=== PATIENT | female | born 1975 | race Caucasian/White ===

== ENCOUNTER 2017-10-10 10:39 | Emergency (ER) | payer OTHER, SELFPAY ==
[2017-10-10] MEDS ORDERED: HYDROCODONE/APAP 5/325 MG TAB ONE (11:05)
--- NOTE | 2017-10-10 11:43 | RAD REPORT ---
EXAM DESCRIPTION: RAD - Ankle Right 3 View - 10/10/2017 11:34 am CLINICAL HISTORY: PAIN History of twisting injury. COMPARISON: No comparisons FINDINGS: No fracture or dislocation seen. Mild soft tissue swelling is evident. No aggressive bone lesion.
--- NOTE | 2017-10-10 11:51 | EDPHYS ---
Physician Documentation [facility] Name: Margie Paul Age: 41 yrs Sex: Female : 1975 Arrival Date: 10/10/2017 Time: 10:43 Bed 13 Private MD: Rafael Celestin ED Physician Doroteo Diallo HPI: 10/10 11:00 This 41 yrs old Female presents to ER via Ambulatory with complaints of Ankle pm1 Injury. 11:00 The patient presents with pain, swelling. The complaints affect the right ankle. Onset: pm1 The symptoms/episode began/occurred 2 week(s) ago. Context: The problem was sustained at home, resulted from turned her ankle, The mechanism of injury involved inversion of the affected ankle. The patient can partially bear weight on the affected extremity. the patient is able to ambulate. Associated signs and symptoms: Pertinent positives: swelling, of the lateral aspect of right ankle, Pertinent negatives: calf tenderness, fever, numbness, tingling. Modifying factors: The symptoms are alleviated by elevation of extremity, the symptoms are aggravated by weight bearing, movement. Severity of symptoms: in the emergency department the symptoms are actually worse. The patient has not experienced similar symptoms in the past. The patient has not recently seen a physician, the patient's primary care provider is Dr. Celestin. BELT TURNER: 12:18 LMP N/A - Irregular menses em Historical: - Allergies: 10:59 No Known Allergies; rk2 - Immunization history:: Last tetanus immunization: up to date Pneumococcal vaccine is up to date, Flu vaccine is not up to date. - Ebola Screening: : Patient negative for fever greater than or equal to 101.5 degrees Fahrenheit, and additional compatible Ebola Virus Disease symptoms. - Social history:: Smoking status: unknown. ROS: 11:00 Constitutional: Negative for fever, chills, and weight loss, Cardiovascular: Negative pm1 for chest pain, palpitations, and edema, Respiratory: Negative for shortness of breath, cough, wheezing, and pleuritic chest pain, Abdomen/GI: Negative for abdominal pain, nausea, vomiting, diarrhea, and constipation, Back: Negative for injury and pain. 11:00 Skin: Negative for injury, rash, and discoloration, Neuro: Negative for headache, weakness, numbness, tingling, and seizure. 11:00 MS/extremity: Positive for pain, swelling, of the right ankle. Exam: 11:00 Constitutional: This is a well developed, well nourished patient who is awake, alert, pm1 and in no acute distress. Head/Face: Normocephalic, atraumatic. Chest/axilla: Normal chest wall appearance and motion. Nontender with no deformity. No lesions are appreciated. Cardiovascular: Regular rate and rhythm with a normal S1 and S2. No gallops, murmurs, or rubs. Normal PMI, no JVD. No pulse deficits. Respiratory: Lungs have equal breath sounds bilaterally, clear to auscultation and percussion. No rales, rhonchi or wheezes noted. No increased work of breathing, no retractions or nasal flaring. Abdomen/GI: Soft, non-tender, with normal bowel sounds. No distension or tympany. No guarding or rebound. No evidence of tenderness throughout. Back: No spinal tenderness. No costovertebral tenderness. Full range of motion. Skin: Warm, dry with normal turgor. Normal color with no rashes, no lesions, and no evidence of cellulitis. 11:00 Musculoskeletal/extremity: Extremities: grossly normal except: noted in the lateral aspect of right ankle: swelling, tenderness, ROM: full active range of motion, in the right ankle and right foot, full passive range of motion, in the right ankle and right foot, Circulation is intact in all extremities. Sensation intact. Vital Signs: 10:59 BP 146 / 81; Pulse 85; Resp 18; Temp 97.9; Pulse Ox 97% ; Weight 90.72 kg; rk2 MDM: 10:47 Patient medically screened. pm1 11:50 Data reviewed: vital signs. Data interpreted: Pulse oximetry: on room air is 97 %. pm1 Interpretation: normal. Counseling: I had a detailed discussion with the patient and/or guardian regarding: the historical points, exam findings, and any diagnostic results supporting the discharge/admit diagnosis, radiology results, the need for outpatient follow up, to return to the emergency department if symptoms worsen or persist or if there are any questions or concerns that arise at home. 11:51 Special discussion: I have referred the patient to see his PCP for further evaluation pm1 of high blood pressure. 10/10 10:54 Order name: Ankle Right 3 View XRAY; Complete Time: 11:45 pm1 10/10 11:50 Order name: Aircast Ankle Splint; Complete Time: 12:16 pm1 10/10 11:50 Order name: Crutches; Complete Time: 12:16 pm1 Administered Medications: 11:09 Drug: [place] 5 mg-325 mg 1 tabs Route: PO; em 12:16 Follow up: Response: No adverse reaction Disposition: 10/11 07:56 Co-signature as Attending Physician, Doroteo Diallo MD. Disposition: 10/10/17 11:51 Discharged to Home. Impression: Sprain of unspecified ligament of right ankle. - Condition is Stable. - Discharge Instructions: Ankle Sprain, Cast or Splint Care, Crutch Use. - Prescriptions for Diclofenac Sodium 75 mg Oral Tablet Sustained Release - take 1 tablet by ORAL route 2 times per day; 30 tablet. - Medication Reconciliation Form, Thank You Letter form. - Follow up: Emergency Department; When: As needed; Reason: Worsening of condition. Follow up: Tristin Baker MD; When: 2 - 3 days; Reason: Recheck today's complaints, Continuance of care, Re-evaluation by your physician. - Problem is new. - Symptoms have improved. Signatures: Dispatcher [employer] EDMS Ivan Gimenez, INFORMATION CLERK BROKERAGE INFORMATION CLERK BROKERAGE em Juanito Arenas, FRUIT HARVESTER MACHINE OPERATOR FRUIT HARVESTER MACHINE OPERATOR pm1 Doroteo Diallo MD MD Vilma Vazquez RN RN rk2 Minna Umaña RN ss Corrections: (The following items were deleted from the chart) 10/10 12:19 11:51 10/10/2017 11:51 Discharged to Home. Impression: Sprain of unspecified ligament em of right ankle. Condition is Stable. Forms are Medication Reconciliation Form, Thank You Letter, Antibiotic Education, Prescription Opioid Use. Follow up: Emergency Department; When: As needed; Reason: Worsening of condition. Follow up: Dr. Tristin Baker; When: 2 - 3 days; Reason: Recheck today's complaints, Continuance of care, Re-evaluation by your physician. Problem is new. Symptoms have improved. pm1
--- NOTE | 2017-10-10 11:51 | ER ---
Nurse's Notes [facility] Name: Margie Paul Age: 41 yrs Sex: Female : 1975 Arrival Date: 10/10/2017 Time: 10:43 Bed 13 Private MD: Rafael Celestin Diagnosis: Sprain of unspecified ligament of right ankle Presentation: 10/10 10:53 Presenting complaint: Patient states: Pt. arrived by pv. c/o right foot/ankle pain. pt. rk2 states that she "rolled it" x 2+ weeks ago and not improving. Transition of care: patient was not received from another setting of care. Onset of symptoms Onset of symptoms was September 2017. Risk Assessment: Do you want to hurt yourself or someone else? Patient reports no desire to harm self or others. Initial Sepsis Screen: Does the patient meet any 2 criteria? No. Patient's initial sepsis screen is negative. Does the patient have a suspected source of infection? No. Patient's initial sepsis screen is negative. Care prior to arrival: None. 10:53 Method Of Arrival: Ambulatory rk2 10:53 Acuity: JEY 4 rk2 Triage Assessment: 10:59 General: Appears in no apparent distress. well developed, well nourished, Behavior is rk2 calm, cooperative. Pain: Complains of pain in right foot. Musculoskeletal: Swelling present in right foot. CONVEYOR FEEDER OFFBEARER: 12:18 LMP N/A - Irregular menses em Historical: - Allergies: 10:59 No Known Allergies; rk2 - Immunization history:: Last tetanus immunization: up to date Pneumococcal vaccine is up to date, Flu vaccine is not up to date. - Ebola Screening: : Patient negative for fever greater than or equal to 101.5 degrees Fahrenheit, and additional compatible Ebola Virus Disease symptoms. - Social history:: Smoking status: unknown. Screenin:20 Abuse screen: Denies threats or abuse. Nutritional screening: No deficits noted. em Tuberculosis screening: No symptoms or risk factors identified. Fall Risk None identified. Assessment: 11:00 General: Appears in no apparent distress. comfortable, Behavior is calm, cooperative, em Reports "rolling ankle about 3 weeks ago, has got worse". Pain: Complains of pain in right foot Pain currently is 8 out of 10 on a pain scale. Neuro: Level of Consciousness is awake, alert, obeys commands, Oriented to person, place, time, situation. Cardiovascular: Capillary refill < 3 seconds Patient's skin is warm and dry. Respiratory: Airway is patent Respiratory effort is even, unlabored, Respiratory pattern is regular, symmetrical. GI: Abdomen is flat. : No signs and/or symptoms were reported regarding the genitourinary system. EENT: No signs and/or symptoms were reported regarding the EENT system. Derm: Skin is intact, Skin is pink, warm \\T\\ dry. Musculoskeletal: Range of motion: limited in right ankle Swelling present in right foot. 11:05 General: The previous assessment is accurate, call light remains within reach. . ss 12:17 Reassessment: Patient appears in no apparent distress at this time. Patient and/or em family updated on plan of care and expected duration. Pain level reassessed. Patient is alert, oriented x 3, equal unlabored respirations, skin warm/dry/pink. states, "medication didn't do anything." AURELIO Solomon notified, no new orders received. Vital Signs: 10:59 BP 146 / 81; Pulse 85; Resp 18; Temp 97.9; Pulse Ox 97% ; Weight 90.72 kg; rk2 ED Course: 10:43 Patient arrived in ED. sb2 10:43 Rafael Celestin MD is Private Physician. sb2 10:47 Juanito Arenas NP is PHCP. pm1 10:47 Doroteo Diallo MD is Attending Physician. pm1 10:57 Ivan Gimenez LVN is Primary Nurse. em 10:58 Triage completed. rk2 11:13 Arm band placed on. em 11:21 No provider procedures requiring assistance completed. Patient did not have IV access em during this emergency room visit. 11:22 Patient has correct armband on for positive identification. Bed in low position. Call em light in reach. Adult w/ patient. 11:33 X-ray completed. Portable x-ray completed in exam room. Patient tolerated procedure la2 well. 11:34 Ankle Right 3 View XRAY In Process Unspecified. EDMS 11:51 Tristin Baker MD is Referral Physician. pm1 12:09 Crutch training done. mh5 Administered Medications: 11:09 Drug: [place] 5 mg-325 mg 1 tabs Route: PO; em 12:16 Follow up: Response: No adverse reaction ss Outcome: 11:51 Discharge ordered by . pm1 12:19 Discharged to home with crutches. em 12:19 Condition: good 12:19 Discharge instructions given to patient, family, Instructed on discharge instructions, follow up and referral plans. medication usage, crutch walking, Demonstrated understanding of instructions, follow-up care, medications, crutch walking, Prescriptions given X 1. 12:19 Patient left the ED. em Signatures: Dispatcher [employer] EDIvan Tolbert, DRIVER GUARD DRIVER GUARD em Minna Umaña, KATY RN ss Juanito Arenas NP PATCH WORKER pm1 Jennie Maher Leslie la2 Kidder, Rhonda, RN RN rk2 Stacy Kruse2
[2017-10-10 12:35] VITALS: BP 146/81; TEMP 97.9; O2SAT 97
== END 2017-10-10 12:19 | disposition home or self-care (01) ==
LOC: ER 10:39
DX: S93.401A Sprain of unspecified ligament of right ankle, initial encounter (principal); X50.1XXA Overexertion from prolonged static or awkward postures, initial encounter; Y93.89 Activity, other specified; Y92.009 Unspecified place in unspecified non-institutional (private) residence as the place of occurrence of the external cause
CPT/HCPCS: 99284

== ENCOUNTER 2019-01-05 11:37 | Emergency (ER) | payer SELFPAY ==
--- NOTE | 2019-01-05 12:00 | ER ---
Nurse's Notes [facility] Name: Margie Paul Age: 43 yrs Sex: Female : 1975 Arrival Date: 01/05/2019 Time: 11:37 Bed Waiting Private MD: Diagnosis: Assessment: 01/05 11:48 Reassessment: pt not in lobby when called. iw 11:59 Reassessment: pt not in lobby, registration reports seeing pt leave. ED Course: 11:37 Patient arrived in ED. as Administered Medications: No medications were administered Outcome: 11:59 Eloped from waiting room, before seeing physician Time discovered patient gone: iw January 05, 2019 at 11:59 11:59 Patient left the ED. Signatures: Rimma Maher Irene, RN RN iw
== END 2019-01-05 11:59 | disposition left against medical advice (07) ==
LOC: ER 11:37
DX: Z02.9 Encounter for administrative examinations, unspecified (principal)

== ENCOUNTER 2020-06-06 02:05 | Emergency (ER) | payer SELFPAY ==
--- OUTSIDE RECORDS SUMMARY | 2020-06-06 02:08 | XMS REPORT ---
:1975 Author Organization [facility] Address [address], [address] [place] [address] Care Team Providers Name Role Phone Cifuentes Unavailable [phone] PROBLEMS Type Condition ICD9-CM [id number] Onset Condition SNOMED Code Notes Code Code Dates Status Problem Insomnia, G47.00 Active 174091536 unspecified type Problem Hypothyroidism, E03.9 Active 93926882 unspecified type Problem Depression with F41.8 Active 071382848 anxiety Problem Generalized F41.1 Active 73623393 anxiety disorder Problem Panic disorder F41.0 Active 119106122 [episodic paroxysmal anxiety] Problem Mixed E78.2 Active 557821564 hyperlipidemia Problem Primary M16.11 Active 744243156905740 osteoarthritis of right hip Problem Other obesity due E66.09 Active 694499250 to excess calories Problem Body mass index Z68.33 Active 628916788 [BMI] 33.0-33.9, adult ALLERGIES No Known Allergies ENCOUNTERS from 1975 to 2020-03-15 Encounter Location Date Provider Diagnosis [facility] [address], [place] [address] IMMUNIZATIONS Vaccine Route Administration Date Status Fluzone IM Intramuscular July 05, 2019 Administered SOCIAL HISTORY Tobacco Use: Social History Observation Description Date Details (start date - stop date) Current Smoker Sex Assigned At : Social History Observation Description Sex Assigned At Unknown PHQ9 Question Answer Notes Little interest or pleasure in doing things Not at all Feeling down, depressed, or hopeless Not at all Trouble falling or staying asleep or sleeping too much Sever al days Feeling tired or having little energy Not at all Poor appetite or overeating Several days Feeling bad about yourself, or that you are a failure, or Se veral days have let yourself or your family down Trouble concentrating on things, such as reading the Not at all newspaper or watching television Moving or speaking so slowly that other people could have No t at all noticed; or the opposite, being so fidgety or restless that you have been moving around a lot more than usual Total Score 3 Interpretation Minimal Depression Thoughts that you would be better off or of hurting Not at all yourself in some way Alcohol Screen Question Answer Notes Did you have a drink containing alcohol in the past Yes year? Points 1 Interpretation Negative How often did you have a drink containing alcohol in Monthly or less (1 point) the past year? Tobacco Use/Smoking Question Answer Notes Are you a current smoker How many cigarettes a day do you smoke? 11-20 How often do you smoke cigarettes? every day REASON FOR REFERRAL No Information VITAL SIGNS No information MEDICATIONS Medication SIG (Take, Route, Notes Start Date End Date Status Frequency, Duration) Zolpidem Tartrate 10 MG 1 tablet at bedtime (ok Active to fill on or after 02/07/20) Orally Once a day PRN Insomnia for 30 days Clonazepam 0.5 MG 1 tablet on the tongue Feb, Active and allow to dissolve at bedtime Orally Once a day PRN SEVERE ANXIETY Escitalopram Oxalate 20 MG 1 tablet Orally Once a Active day for 30 day(s) Acetaminophen-Codeine 1 tablet as needed Jul, Active 300-30 MG Orally every 12 hrs PRN Pain Levothyroxine Sodium 150 1 tablet in the morning Active MCG on an empty stomach Orally Once a day for 30 days Phentermine HCl 37.5 MG 1 capsule Orally Once a Active day for 30 days Euthyrox 175 MCG TAKE 1 TABLET BY MOUTH Active ONCE DAILY IN THE MORNING ON AN EMPTY STOMACH FOR 30 DAYS for 30 PROCEDURES No Information RESULTS No Results REASON FOR VISIT clonazepam clarification MEDICAL (GENERAL) HISTORY Type Description Date Medical History Hypothyroidism, unspecified type Medical History Depression with anxiety Medical History Insomnia, unspecified type Medical History Mixed hyperlipidemia Medical History Primary osteoarthritis of right hip Surgical History Tubal ligation 2011 Surgical History Gallbladder-1 huge stone 2018 Goals Section No Information Health Concerns No Information MEDICAL EQUIPMENT No Information MENTAL STATUS No Information FUNCTIONAL STATUS No Information ASSESSMENTS No Information PLAN OF TREATMENT Medication Medication Name Sig Start Date Stop Date Zolpidem Tartrate 10 MG 1 tablet at bedtime (ok to fill on or after 02/07/20) Orally Once a day PRN Insomnia for 30 days Levothyroxine Sodium 150 MCG 1 tablet in the morning on an empty stomach Orally Once a day for 30 days Escitalopram Oxalate 20 MG 1 tablet Orally Once a day for 30 day(s) Phentermine HCl 37.5 MG 1 capsule Orally Once a day for 30 days Clonazepam 0.5 MG 1 tablet on the tongue and allow Feb, to dissolve at bedtime Orally Once a day PRN SEVERE ANXIETY Insurance Providers Payer Name Payer Payer Insured Patient Coverage Coverage End Address Phone Name Relationship to Start Date Dennis e Insured [facility] [phone] [place] self [address] [facility] [id number] [facility] [id number]
--- OUTSIDE RECORDS SUMMARY | 2020-06-06 02:08 | XMS REPORT ---
:1975 Author Organization [facility] Address [address], [address] [place] [address] Care Team Providers Name Role Phone Cifuentes Unavailable [phone] PROBLEMS Type Condition ICD9-CM [id number] Onset Condition SNOMED Code Notes Code Code Dates Status Problem Insomnia, G47.00 Active 537348559 unspecified type Problem Hypothyroidism, E03.9 Active 03157114 unspecified type Problem Depression with F41.8 Active 862742737 anxiety Problem Generalized F41.1 Active 14104929 anxiety disorder Problem Panic disorder F41.0 Active 975559639 [episodic paroxysmal anxiety] Problem Mixed E78.2 Active 436741070 hyperlipidemia Problem Primary M16.11 Active 949736117128243 osteoarthritis of right hip Problem Other obesity due E66.09 Active 571825537 to excess calories Problem Body mass index Z68.33 Active 715297312 [BMI] 33.0-33.9, adult ALLERGIES No Known Allergies ENCOUNTERS from 1975 to 2020-03-20 Encounter Location Date Provider Diagnosis [facility] [address] Will [facility] Feb, [facility] [place] ic disorder [facility] [address] [place], [[place] [address] anxiety] F41.0 IMMUNIZATIONS Vaccine Route Administration Date Status Fluzone [...] Tartrate 10 MG 1 tablet at bedtime Active (ok to fill on or after 02/07/20) Orally Once a day PRN Insomnia for 30 days Cyclobenzaprine HCl 5 MG 1 tablet at bedtime as Feb, 20 Active needed Orally Once a day PRN SPASM Escitalopram Oxalate 20 MG 1 tablet Orally Once a Active day for 30 day(s) Clonazepam 0.5 MG 1 tablet on the tongue Feb, Active and allow to dissolve at bedtime Orally Once a day PRN SEVERE ANXIETY Acetaminophen-Codeine 300-30 1 tablet as needed Jul, 20 Active MG Orally every 12 hrs PRN Pain Levothyroxine Sodium 150 MCG 1 tablet in the Active morning on an empty stomach Orally Once a day for 30 days Phentermine HCl 37.5 MG 1 capsule Orally Once Active a day for 30 days Euthyrox 175 MCG TAKE 1 TABLET BY MOUTH Active ONCE DAILY IN THE MORNING ON AN EMPTY STOMACH FOR 30 DAYS for 30 PROCEDURES No Information RESULTS No Results REASON FOR VISIT Clonazepam to diff pharm MEDICAL (GENERAL) HISTORY Type Description Date Medical History Hypothyroidism, unspecified type Medical History Depression with anxiety Medical History Insomnia, unspecified type Medical History Mixed hyperlipidemia Medical History Primary osteoarthritis of right hip Surgical History Tubal ligation 2011 Surgical History Gallbladder-1 huge stone 2019 Goals Section No Information Health Concerns No Information MEDICAL EQUIPMENT No Information MENTAL STATUS No Information FUNCTIONAL STATUS No Information ASSESSMENTS Encounter Date Diagnosis Assessment Notes Treatment Notes Treatm ent Clinical Notes Feb, Panic disorder [episodic paroxysmal anxiety] (ICD-10 - F41.0) PLAN OF TREATMENT Medication Medication Name Sig [...] Orally Once a day PRN SEVERE ANXIETY Cyclobenzaprine HCl 5 MG 1 tablet at bedtime as needed Feb, 020 Orally Once a day PRN SPASM Insurance Providers Payer Name Payer Payer Insured Patient Coverage Coverage End Address Phone Name Relationship to Start Date Dennis e Insured [facility] [phone] [place] [address] [employer] [id number] [facility] [id number]
--- OUTSIDE RECORDS SUMMARY | 2020-06-06 02:08 | XMS REPORT | Continuity of Care Document ---
:1975 Author Organization [facility] t Address [address] [place] [address] Care Team Providers Name Role Phone Millicent JOSUE, L Attending Clinician Problems This patient has no known problems. Allergies, Adverse Reactions, Alerts This patient has no known allergies or adverse reactions. Medications Ordered Filled Start Stop Current Ordering Indication Dosage Frequency Signature Comments Components Source Medication Medication Date Date Medication? Clinician (SIG) Name Name Escitalopra Escitalopra Yes Amandeep Take 1/[address] [facility] Oxalate m Oxalate 8-13 C[facility]uentes tab QD x 1 [facility] Levothyroxi Levothyroxi Yes Amandeep [address] [facility] ne Sodium ne Sodium Cifuentes in the Elena kes - morning on [facility] an empty l stomach [facility]pat[facility] ent Clinics Zolpidem Zolpidem Yes Amandeep [address] Tartrate Tartrate [facility]uent[facility] at bedtime [facility] Procedures This patient has no known procedures. Encounters Start End Encounter Admission Attending Care Care Encounter Source Date/Time Date/Time Type Type Clinicians Facility Department ID 2020-05-28 2020-05-28 Out[facility] [id number] [facility] 2020-05-14 2020-05-14 [facility] [id number] [facility] 2020-05-09 2020-05-09 [facility] [id number] [facility] 2020-05-01 2020-05-01 [facility] [id number] [facility] 2020-03-20 2020-03-20 [facility] [id number] [facility] 2020-03-19 2020-03-19 Out[facility] [id number] [facility] 2020-03-14 2020-03-14 [facility] [id number] [facility] 2020-03-14 2020-03-14 [facility] [id number] [facility] 2020-03-12 2020-03-12 [facility] [id number] [facility] 2020-02-22 2020-02-22 [facility] [id number] [facility] 2020-02-08 2020-02-08 [facility] [id number] [facility] 2020-02-01 2020-02-01 [facility] [id number] [facility] 2020-01-26 2020-01-26 [facility] [id number] [facility] 2020-01-25 2020-01-25 [facility] [id number] [facility] 2020-01-08 2020-01-08 [facility] [id number] [facility] 13[facility]30:00 13:30:00 [place] [employer] [address] [place] s - Drive [facility] l Medicine Outpati ent Clinics 2019-12-28 2019-12-28 [facility] [id number] [address] 11:40:00 11:40:00 t [facility] [employer] - Road [facility] Medicine Outpati ent Clinics 2019-12-27 2019-12-27 [facility] [id number] [address] 10:37:00 10:37:00 t [place] [employer] - Drive [facility] Medicine Outpati ent Clinics 2019-12-27 2019-12-27 [facility] [id number] [facility] 10:30:00 10:30:00 t [place] [employer] - Drive [facility] l Medicine Outpati ent Clinics 2019-12-07 2019-12-07 [facility] [id number] 15:15:00 15:15:00 [place] [employer] - Drive [facility] Medicine l Medicine Outpati ent Clinics 2019-12-04 2019-12-04 Telephone [facility] [id number] 00:00:00 00:00:00 [facility] [id number] Surgical [id number] Specialti [id number] [address] [place] 2019-11-30 2019-11-30 [facility] [id number] 08:24:40 09:18:06 [facility] [id number] Surgical [id number] Specialti [id number] es [address] [place] 2019-11-06 2019-11-06 [facility] [id number] 13:30:00 13:30:00 [employer] [facility] 2019-08-28 2019-08-28 [facility] [id number] 13:15:00 13:15:00 [employer] [facility] ent Clinics Results This patient has no known results.
--- OUTSIDE RECORDS SUMMARY | 2020-06-06 02:08 | XMS REPORT ---
:1975 Author Organization [facility] Address [address], [address] [place] [address] Care Team Providers Name Role Phone Cifuentes Unavailable [phone] PROBLEMS Type Condition ICD9-CM ESX33-OP Onset Condition SNOMED Code Notes Code Code Dates Status Problem Depression with F41.8 Active 570590642 anxiety Problem Body mass index Z68.33 Active 386575567 [BMI] 33.0-33.9, adult Problem Other obesity due E66.09 Active 096052622 to excess calories Problem Insomnia, G47.00 Active 407460334 unspecified type Problem Hypothyroidism, E03.9 Active 05975819 unspecified type Problem Primary M16.11 Active [id number] osteoarthritis of right hip Problem Mixed E78.2 Active 713865394 hyperlipidemia ALLERGIES No Known Allergies ENCOUNTERS from 1975 to 2020-03-13 Encounter Location Date Provider Diagnosis [facility] [address] Feb, 2020 [place] [address] IMMUNIZATIONS Vaccine Route Administration Date Status Fluzone [...] many cigarettes a day do you smoke? -20 How often do you smoke cigarettes? every day REASON FOR REFERRAL No Information VITAL SIGNS No information MEDICATIONS Medication SIG (Take, Route, Notes Start Date End Date Status Frequency, Duration) Zolpidem Tartrate 10 MG 1 tablet at bedtime (ok Active to fill on or after 02/07/20) Orally Once a day PRN Insomnia for 30 days Acetaminophen-Codeine 1 tablet as needed Jul, Active 300-30 MG Orally every 12 hrs PRN Pain Euthyrox 175 MCG TAKE 1 TABLET BY MOUTH Active ONCE DAILY IN THE MORNING ON AN EMPTY STOMACH FOR 30 DAYS for 30 Escitalopram Oxalate 10 MG 1 tablet Orally Once a Active day for 30 day(s) Phentermine HCl 37.5 MG 1 capsule Orally Once a Active day for 30 days Levothyroxine Sodium 150 1 tablet in the morning Active MCG on an empty stomach Orally Once a day for 30 days PROCEDURES No Information RESULTS No Results REASON FOR VISIT Medication refill MEDICAL (GENERAL) HISTORY Type Description Date Medical [...] a day PRN Insomnia for 30 days Phentermine HCl 37.5 MG 1 capsule Orally Once a day for 30 days Levothyroxine Sodium 150 MCG 1 tablet in the morning on an empty stomach Orally Once a day for 30 days Escitalopram Oxalate 10 MG 1 tablet Orally Once a day for 30 day(s) Next Appt Details Provider Name:Amandeep Cifuentes, 2020-03-14 0 4:30:00 PM, [address], [address], [place], [address], Insurance Providers Payer Name Payer Payer Insured Patient Coverage Coverage End Address Phone Name Relationship to Start Date Dennis e Insured [facility] [phone] [place] self 2019 [facility] [id number] [facility] [id number]
--- OUTSIDE RECORDS SUMMARY | 2020-06-06 02:08 | XMS REPORT ---
:1975 Author Organization [facility] Address [address] Roth, [address]. [address] [place] [address] Care Team Providers Name Role Phone Cifuentes Unavailable [phone] PROBLEMS Type Condition ICD9-CM [id number] Onset Condition SNOMED Code Notes Code Code Dates Status Problem Insomnia, G47.00 Active 628412304 unspecified type Problem Hypothyroidism, E03.9 Active 09444959 unspecified type Problem Depression with F41.8 Active 139019193 anxiety Problem Generalized F41.1 Active 02407836 anxiety disorder Problem Panic disorder F41.0 Active 982797906 [episodic paroxysmal anxiety] Problem Mixed E78.2 Active 664112126 hyperlipidemia Problem Primary M16.11 Active 849799057007985 osteoarthritis of right hip Problem Other obesity due E66.09 Active 087617655 to excess calories Problem Body mass index Z68.33 Active 539994506 [BMI] 33.0-33.9, adult ALLERGIES No Known Allergies ENCOUNTERS from 1975 to 2020-05-09 Encounter Location Date Provider Diagnosis [facility] [address] Will ETHAN Apr, Amandeep Esau Zhao n with anxiety [address] [facility] [address] [place], F41.8 ; [place] [address] anxiety disord er F41.1 ; Panic disorde r [episodic parox ysmal anxiety] F41.0 ; Body mass index [BMI ] 33.0-33.9, adul t Z68.33 ; Hypothyroidis m, unspecified typ e E03.9 ; Insomnia, uns pecified type G47.00 ; Bereavement due to life event Z63.4 ; M ixed hyperlipidemia E78.2 ; Primary osteoar thritis of right hip M1 6.11 ; Other obesity d ue to excess calories E66.09 and Encounter f or dietary corrections counselor ing and surveillance Z7 1.3 IMMUNIZATIONS Vaccine Route Administration Date Status Fluzone [...] REASON FOR REFERRAL No Information VITAL SIGNS Height 67 in Apr, Weight 215 lbs Apr, Temperature 98 degrees Fahrenheit Apr, BMI 33.67 kg/m2 Apr, Blood pressure systolic 124 mm Hg Apr, Blood pressure diastolic 88 mm Hg Apr, MEDICATIONS Medication SIG (Take, Route, Notes Start Date End Date Status Frequency, Duration) Euthyrox 150 MCG TAKE 1 TABLET BY MOUTH Active ONCE DAILY IN THE MORNING ON AN EMPTY STOMACH FOR 30 DAYS for 30 Euthyrox 175 MCG TAKE 1 TABLET BY MOUTH Active ONCE DAILY IN THE MORNING ON AN EMPTY STOMACH FOR 30 DAYS for 30 Phentermine HCl 37.5 MG 1 capsule Orally Once Active a day for 30 days Levothyroxine Sodium 150 MCG 1 tablet in the Active morning on an empty stomach Orally Once a day for 30 days Acetaminophen-Codeine 300-30 1 tablet as needed Jul, 20 Active MG Orally every 12 hrs PRN Pain Clonazepam 0.5 MG 1 tablet on the tongue Active and allow to dissolve at bedtime Orally Once a day PRN SEVERE ANXIETY Cyclobenzaprine HCl 5 MG 1 tablet at bedtime as Feb, 20 Active needed Orally Once a day PRN SPASM Zolpidem Tartrate 10 MG 1 tablet at bedtime as Active needed Orally Once a day PRN Insomnia for 30 days Escitalopram Oxalate 20 MG 1 tablet Orally Once a Active day for 30 day(s) PROCEDURES No Information RESULTS No Results REASON FOR VISIT med f/u MEDICAL (GENERAL) HISTORY Type Description Date Medical [...] Notes Treatment Notes Treatm ent Clinical Notes Apr, Depression with Actively listented. anxiety (ICD-10 - Support given. F41.8) Discussed treatment options. Medication + Counseling/Therapy. Infomation provided for psychologist for therapy options, encouraged to call to make an appt. IINCREASED Lexapro 20 mg. STOPPED BUSPAR 10 mg BID. Side effect discussed. Depression Education: Depression is a brain disease that makes you sad, but it is different than normal sadness. Depressed people feel down most of the time for at least 2 weeks. They also have at least one of these 2 symptoms: 1. They no longer enjoy or care about doing the things they used to like to do. 2. They feel sad, down, hopeless, or cranky most of the day, almost every day. It can also make you: lose or gain weight; sleep too much or too little; fell tired or like you have no energy; feel guilty or like you are worth nothing; forget things or feel confused; and think about or suicide. Medication and/or seeing a counselor (such as a psychiatrist, psychologist, nurse or director social welfare) may be necessary to treat depression. Both treatments take time to work. If you ever feel like you might hurt yourself or some else, then call your doctor or call 911 or go to the ER. Apr, Generalized anxiety disorder (ICD-10 - F41.1) Apr, Panic disorder Discussed [episodic paroxysmal differential anxiety] (ICD-10 - diagnosis F41.0) extensively patient. Education given. Minimal relief with conservative treatment at this time. Impacting and affecting ADLs. At this time, will prescribe a limited course of Clonazepam 0.50 mg once daily for severe anxiety. Dispensed 15 tablets. Has failed multiple SSRIs and other medications. Instructed to use half tablet as needed. Discussed extensively with patient including but not limited to risk, complications, benefits, alternative treatment options, side effect panel of benzodiazepine. In addition, discussed long-term impact of benzodiazepine usage including building tolerance, dependence and leading to addiction. Patient is agreeable of being referred to psychiatry if patient is in need of increase in frequency and quantity of benzodiazepine. Patient vocalized understanding. Apr, Body mass index [BMI] 33.0-33.9, adult (ICD-10 - Z68.33) Apr, Hypothyroidism, DECREASED unspecified type levothyroxine to 150 (ICD-10 - E03.9) mcg. Goal TSH 1-3. Sativa plan discussed. Repeat in 2 months. Education given., Hypothyroidism Education: This a condition in which the thyroid gland does not produce enough thyroid hormone for the body. The hormones are important in regulating the body''s use of storing and controlling energy. Symptoms are widely varied and often mimick the body''s normal changes of life. Symptoms may include: fatigue, shortness of breath with exertion, dry skin, hair loss, constipation, depressed feeling, weight gain and temperature intolerance. A blood test is used to determine the thyroid levels. Treatment involves the use of medication in order to balance the TSH and T4 hormone levels. Treatment is indefinite and often lifelong. Your hormone levels will need to be checked periodically to insure that the levels are balanced. Compliance with medication is vital. Overtreated hormone levels can lead to complications. Contact your doctor if you have any abnormal symptoms. Apr, Insomnia, Discussed good sleep unspecified type hygiene. No relief (ICD-10 - G47.00) with amitriptyline, lunesta and trazodone. No change with trazodone or Belsomra. Increased Ambien 10 mg Side effect panel discussed.. Apr, Bereavement due to . Actively life event (ICD-10 - listened. Support Z63.4) given Apr, Mixed hyperlipidemia . Diet controlled. (ICD-10 - E78.2) Education given. , Hyperlipidemia Education: Hyperlipidemia refers to increased levels of lipids(fats) in the blood, including cholesterol and triglycerides. This can significantly increase your risk of developing coronary artery disease and peripheral artery disease. This can cause chest pain, heart attack, stroke, and fatigue. Treatment is recommended to decrease your risk. Treatment includes: lifestyle modification, low salt/low fat diet, exercise, tobacco cessation, low alcohol intake and sometimes medication. Blood tests (TC,TG, HDL, LDL) are utilized to determine treatment regimens. TC(Total cholesterol) should be below 200. TG(Total Triglycerides) should be below 150. HDL(Good cholesterol) should be above 40. LDL(Bad Cholesterol) should be below 130(if you have one risk factor) or less than 100( if you have more than one risk factor or have DM/CAD/PVD). Compliance with medication and treatment is vital. If you have questions, talk to your doctor. Apr, Primary Discussed osteoarthritis of differential right hip (ICD-10 - diagnosis with M16.11) patient. Education given. Recent CT scan showed arthritis per patient. Referral to orthopedic for further evaluation and management. Apr, Other obesity due to Discussed excess calories extensively with (ICD-10 - E66.09) patient. Discussed surgical versus nonsurgical weight loss options. Discussed medication options as well too. Educated on the importance of weight loss. Patient will opt for Adipex. Increase 37.5 mg. Side effect panel discussed extensively. Expected to lose more than 5% body weight in 12 weeks, if unable will stop medication. If symptomatic will obtain EKG. No personal or family history of cardiac. Counseling given. Spent more than 15 min with patient discussing and planning diet and exercise plan. Apr, Encounter for Actively listened. dietary counseling Support given. and surveillance Counseling given. (ICD-10 - Z71.3) Education given. Utilized the 5-A''s approach to increase patient motivation and behavioral change. ASK: Patient expressed desire/readiness to change and permission was obtained to discuss. ASSESS: BMI class discussed. In addition, patient''s barrier to weight loss and identified drivers and complications. ADVISE: Discussed benefits of modest weight loss and long-term strategy as well. Educated on risks and complications of obesity on health. Treatment options were discussed including but not limited to non-surgical (medications, gym, diet/exercise) and surgical options. AGREE: Realistic weight-loss goal discussed. Behavioral goals done. Patient agreed with treatment plan. ASSIST: Provided education and resources. Plan made to address drivers and barriers. Close follow-up arranged. START: Walking daily, reducing soda and increased hydration with water of at least 64 ounces. Weight has been followed. At least 15 minutes were spent counseling. Apr, Other -- Medication reviewed and updated. -- Dietary and Lifestyle modifications addressed regarding diet, exercise and weight managemen t. -- Treatment options, risks and benefits, side effects reviewed in detail. -- Advised on signs/symptoms to monitor and when to call clinic and/or visit the nearest ER. Patient verbalized understanding and agreeable with plan. PLAN OF TREATMENT Medication Medication Name Sig Start Date Stop Date Zolpidem Tartrate 10 MG 1 tablet at bedtime as needed Orally Once a day PRN Insomnia for 30 days Clonazepam 0.5 MG 1 tablet on the tongue and allow to dissolve at bedtime Orally Once a day PRN SEVERE ANXIETY Phentermine HCl 37.5 MG 1 capsule Orally Once a day for 30 days Levothyroxine Sodium 150 MCG 1 tablet in the morning on an empty stomach Orally Once a day for 30 days Escitalopram Oxalate 20 MG 1 tablet Orally Once a day for 30 day(s) Treatment Notes Assessment Notes Clinical Notes Depression with anxiety Actively listented. Support given. Discussed treatment options. Medication + Counseling/Therapy. Infomation provided for psychologist for therapy options, encouraged to call to make an appt. IINCREASED Lexapro 20 mg. STOPPED BUSPAR 10 mg BID. Side effect discussed. Depression Education: Depression is a brain disease that makes you sad, but it is different than normal sadness. Depressed people feel down most of the time for at least 2 weeks. They also have at least one of these 2 symptoms: 1. They no longer enjoy or care about doing the things they used to like to do. 2. They feel sad, down, hopeless, or cranky most of the day, almost every day. It can also make you: lose or gain weight; sleep too much or too little; fell tired or like you have no energy; feel guilty or like you are worth nothing; forget things or feel confused; and think about or suicide. Medication and/or seeing a counselor (such as a psychiatrist, psychologist, nurse or director social welfare) may be necessary to treat depression. Both treatments take time to work. If you ever feel like you might hurt yourself or some else, then call your doctor or call 911 or go to the ER. Panic disorder [episodic paroxysmal Discussed differential d iagnosis anxiety] extensively patient. Education given. Minimal relief with conservative treatment at this time. Impacting and affecting ADLs. At this time, will prescribe a limited course of Clonazepam 0.50 mg once daily for severe anxiety. Dispensed 15 tablets. Has failed multiple SSRIs and other medications. Instructed to use half tablet as needed. Discussed extensively with patient including but not limited to risk, complications, benefits, alternative treatment options, side effect panel of benzodiazepine. In addition, discussed long-term impact of benzodiazepine usage including building tolerance, dependence and leading to addiction. Patient is agreeable of being referred to psychiatry if patient is in need of increase in frequency and quantity of benzodiazepine. Patient vocalized understanding. Hypothyroidism, unspecified type DECREASED levothyroxine to 150 mcg. Goal TSH 1-3. Sativa plan discussed. Repeat in 2 months. Education given., Hypothyroidism Education: This a condition in which the thyroid gland does not produce enough thyroid hormone for the body. The hormones are important in regulating the body''s use of storing and controlling energy. Symptoms are widely varied and often mimick the body''s normal changes of life. Symptoms may include: fatigue, shortness of breath with exertion, dry skin, hair loss, constipation, depressed feeling, weight gain and temperature intolerance. A blood test is used to determine the thyroid levels. Treatment involves the use of medication in order to balance the TSH and T4 hormone levels. Treatment is indefinite and often lifelong. Your hormone levels will need to be checked periodically to insure that the levels are balanced. Compliance with medication is vital. Overtreated hormone levels can lead to complications. Contact your doctor if you have any abnormal symptoms. Insomnia, unspecified type Discussed good sleep hygiene. No relief with amitriptyline, lunesta and trazodone. No change with trazodone or Belsomra. Increased Ambien 10 mg Side effect panel discussed.. Bereavement due to life event . Actively listened. Support given Mixed hyperlipidemia . Diet controlled. Education given. , Hyperlipidemia Education: Hyperlipidemia refers to increased levels of lipids(fats) in the blood, including cholesterol and triglycerides. This can significantly increase your risk of developing coronary artery disease and peripheral artery disease. This can cause chest pain, heart attack, stroke, and fatigue. Treatment is recommended to decrease your risk. Treatment includes: lifestyle modification, low salt/low fat diet, exercise, tobacco cessation, low alcohol intake and sometimes medication. Blood tests (TC,TG, HDL, LDL) are utilized to determine treatment regimens. TC(Total cholesterol) should be below 200. TG(Total Triglycerides) should be below 150. HDL(Good cholesterol) should be above 40. LDL(Bad Cholesterol) should be below 130(if you have one risk factor) or less than 100( if you have more than one risk factor or have DM/CAD/PVD). Compliance with medication and treatment is vital. If you have questions, talk to your doctor. Primary osteoarthritis of right hip Discussed differential d iagnosis with patient. Education given. Recent CT scan showed arthritis per patient. Referral to orthopedic for further evaluation and management. Other obesity due to excess Discussed extensively with toribio vernon. calories Discussed surgical versus nonsurgical weight loss options. Discussed medication options as well too. Educated on the importance of weight loss. Patient will opt for Adipex. Increase 37.5 mg. Side effect panel discussed extensively. Expected to lose more than 5% body weight in 12 weeks, if unable will stop medication. If symptomatic will obtain EKG. No personal or family history of cardiac. Counseling given. Spent more than 15 min with patient discussing and planning diet and exercise plan. Encounter for dietary counseling Actively listened. Support given. and surveillance Counseling given. Education given. Utilized the 5-A''s approach to increase patient motivation and behavioral change. ASK: Patient expressed desire/readiness to change and permission was obtained to discuss. ASSESS: BMI class discussed. In addition, patient''s barrier to weight loss and identified drivers and complications. ADVISE: Discussed benefits of modest weight loss and long-term strategy as well. Educated on risks and complications of obesity on health. Treatment options were discussed including but not limited to non-surgical (medications, gym, diet/exercise) and surgical options. AGREE: Realistic weight-loss goal discussed. Behavioral goals done. Patient agreed with treatment plan. ASSIST: Provided education and resources. Plan made to address drivers and barriers. Close follow-up arranged. START: Walking daily, reducing soda and increased hydration with water of at least 64 ounces. Weight has been followed. At least 15 minutes were spent counseling. Treatment Notes Test Name Order Date Lipid Panel With LDL/HDL Ratio 2020-05-09 Thyroid Panel With TSH 2020-05-09 Comp. Metabolic Panel (14) (CMP) 2020-05-09 Next Appt Details 4 Weeks TV + labs 1 week before Reason: Insurance Providers Payer Name Payer Payer Insured Patient Coverage Coverage End Address Phone Name Relationship to Start Date Dennis e Insured [facility] [phone] [place] self 2020 [facility] [id number] [facility] [id number]
--- OUTSIDE RECORDS SUMMARY | 2020-06-06 02:08 | XMS REPORT ---
:1975 Author Organization [facility] Address [address] Roth, Ethan. [address] [place] [address] Care Team Providers Name Role Phone Cifuentes Unavailable [phone] PROBLEMS Type Condition ICD9-CM [id number] Onset Condition SNOMED Code Notes Code Code Dates Status Problem Insomnia, G47.00 Active 084687999 unspecified type Problem Hypothyroidism, E03.9 Active 77671361 unspecified type Problem Depression with F41.8 Active 204464914 anxiety Problem Generalized F41.1 Active 15504480 anxiety disorder Problem Panic disorder F41.0 Active 696862513 [episodic paroxysmal anxiety] Problem Mixed E78.2 Active 482425024 hyperlipidemia Problem Primary M16.11 Active 192777528771975 osteoarthritis of right hip Problem Other obesity due E66.09 Active 549273796 to excess calories Problem Body mass index Z68.33 Active 410732933 [BMI] 33.0-33.9, adult ALLERGIES No Known Allergies ENCOUNTERS from 1975 to 2020-03-20 Encounter Location Date Provider [facility] [address] Will [address], [place] [address] IMMUNIZATIONS Vaccine Route Administration Date Status Fluzone [...] Information RESULTS No Results REASON FOR VISIT back pain, Rx muscle relaxer? MEDICAL (GENERAL) HISTORY Type Description Date Medical [...] Relationship to Start Date Dennis e Insured [facility] [phone] [place] self 2020 [facility] [id number] [facility] [address]
--- OUTSIDE RECORDS SUMMARY | 2020-06-06 02:08 | XMS REPORT ---
:1975 Author Organization [facility] Address [address] Roth, Ethan. [address] [place] [address] Care Team Providers Name Role Phone Cifuentes Unavailable [phone] PROBLEMS Type Condition ICD9-CM [id number] Onset Condition SNOMED Code Notes Code Code Dates Status Problem Insomnia, G47.00 Active 801403375 unspecified type Problem Hypothyroidism, E03.9 Active 95187352 unspecified type Problem Depression with F41.8 Active 265089292 anxiety Problem Generalized F41.1 Active 67699070 anxiety disorder Problem Panic disorder F41.0 Active 149314336 [episodic paroxysmal anxiety] Problem Mixed E78.2 Active 694635360 hyperlipidemia Problem Primary M16.11 Active 864390041238275 osteoarthritis of right hip Problem Other obesity due E66.09 Active 416924208 to excess calories Problem Body mass index Z68.33 Active 104518380 [BMI] 33.0-33.9, adult ALLERGIES No Known Allergies ENCOUNTERS from 1975 to 2020-05-02 Encounter [facility] [address] Will ETHAN Apr, Amandeep Cifuentes Hyp othyroidism, Family Medicine [address], [place] [id number] E03.9 IMMUNIZATIONS Vaccine Route Administration Date Status Fluzone [...] Start Date End Date Status Frequency, Duration) Levothyroxine Sodium 150 MCG 1 tablet in the Active morning on an empty stomach Orally Once a day for 30 days Clonazepam 0.5 MG 1 tablet on the tongue Feb, Active and allow to dissolve at bedtime Orally Once a day PRN SEVERE ANXIETY Cyclobenzaprine HCl 5 MG 1 tablet at bedtime as Feb, 20 Active needed Orally Once a day PRN SPASM Phentermine HCl 37.5 MG 1 capsule Orally Once Active a day for 30 days Euthyrox 175 MCG TAKE 1 TABLET BY MOUTH Active ONCE DAILY IN THE MORNING ON AN EMPTY STOMACH FOR 30 DAYS for 30 Zolpidem Tartrate 10 MG 1 tablet at bedtime Active (ok to fill on or after 02/07/20) Orally Once a day PRN Insomnia for 30 days Escitalopram Oxalate 20 MG 1 tablet Orally Once a Active day for 30 Acetaminophen-Codeine 300-30 1 tablet as needed Jul, 20 Active MG Orally every 12 hrs PRN Pain Euthyrox 150 MCG TAKE 1 TABLET BY MOUTH Active ONCE DAILY IN THE MORNING ON AN EMPTY STOMACH FOR 30 DAYS for 30 PROCEDURES No Information RESULTS No Results REASON FOR VISIT refill levothyroxine, clonazepam, needs appt MEDICAL (GENERAL) HISTORY Type Description Date Medical [...] Treatment Notes Treatm ent Clinical Notes Apr, Hypothyroidism, unspecified type (ICD-10 - E03.9) PLAN OF TREATMENT Medication Medication Name Sig Start Date Stop Date Levothyroxine Sodium 150 MCG 1 tablet in the morning on an empty stomach Orally Once a day for 30 days Escitalopram Oxalate 20 MG 1 tablet Orally Once a day for 30 Phentermine HCl 37.5 MG 1 capsule Orally Once a day for 30 days Zolpidem Tartrate 10 MG 1 tablet at bedtime (ok to fill on or after 02/07/20) Orally Once a day PRN Insomnia for 30 days Euthyrox 150 MCG TAKE 1 TABLET BY MOUTH ONCE DAILY IN THE MORNING ON AN EMPTY STOMACH FOR 30 DAYS for 30 Cyclobenzaprine HCl 5 MG 1 tablet at bedtime as needed Feb, Orally Once a day PRN SPASM Clonazepam 0.5 MG 1 tablet on the tongue and allow Feb, to dissolve at bedtime Orally Once a day PRN SEVERE ANXIETY Next Appt Details Provider Name:Amandeep Cifuentes, 2020-05-09 08:00:00 AM, [address] Will, [address], [place], [address], Insurance Providers Payer Name Payer Payer Insured Patient Coverage Coverage End Address Phone Name Relationship to Start Date Dennis e Insured [employer] [phone] [place] self [address] [facility] [id number] [facility] [phone]
--- OUTSIDE RECORDS SUMMARY | 2020-06-06 02:08 | XMS REPORT ---
:1975 Author Organization [facility] Address [address], [address] [place] [address] Care Team Providers Name Role Phone Cifuentes Unavailable [phone] PROBLEMS Type Condition ICD9-CM [id number] Onset Condition SNOMED Code Notes Code Code Dates Status Problem Insomnia, G47.00 Active 420369858 unspecified type Problem Hypothyroidism, E03.9 Active 13015592 unspecified type Problem Depression with F41.8 Active 101486469 anxiety Problem Generalized F41.1 Active 32374062 anxiety disorder Problem Panic disorder F41.0 Active 677649312 [episodic paroxysmal anxiety] Problem Mixed E78.2 Active 894120113 hyperlipidemia Problem Primary M16.11 Active 442659903493982 osteoarthritis of right hip Problem Other obesity due E66.09 Active 502789319 to excess calories Problem Body mass index Z68.33 Active 426569827 [BMI] 33.0-33.9, adult ALLERGIES No Known Allergies ENCOUNTERS from 1975 to 2020-03-14 Encounter Location Date Provider Diagnosis [facility] [address] [place] Feb, Amandeep Cifuentes Depressbirgit n with anxiety Drive [address] [place], F41.8 ; [place] [address] anxiety disord er F41.1 ; Panic disorde [...] calories E66.09 and Encounter f or dietary tour counselor ing and surveillance Z7 1.3 IMMUNIZATIONS [...] No Information VITAL SIGNS Height 67 in Feb, Weight 219 lbs Feb, Temperature 98 degrees Fahrenheit Feb, BMI 34.30 kg/m2 Feb, Blood pressure systolic 124 mm Hg Feb, Blood pressure diastolic 74 mm Hg Feb, MEDICATIONS Medication SIG (Take, Route, Notes Start [...] Information RESULTS No Results REASON FOR VISIT discuss meds, refill MEDICAL (GENERAL) HISTORY Type Description Date [...] Treatment Notes Treatm ent Clinical Notes Feb, Depression with Actively listented. anxiety (ICD-10 - [...] (such as a psychiatrist, psychologist, nurse or social security specialist) may be necessary to treat depression. Both treatments take time to work. If you ever feel like you might hurt yourself or some else, then call your doctor or call 911 or go to the ER. Feb, Generalized anxiety disorder (ICD-10 - F41.1) Feb, Panic disorder Discussed [episodic paroxysmal differential anxiety] [...] and quantity of benzodiazepine. Patient vocalized understanding. Feb, Body mass index [BMI] 33.0-33.9, adult (ICD-10 - Z68.33) Feb, Hypothyroidism, DECREASED unspecified type levothyroxine to 150 [...] doctor if you have any abnormal symptoms. Feb, Insomnia, Discussed good sleep unspecified type hygiene. No relief (ICD-10 - G47.00) with amitriptyline, lunesta and trazodone. No change with trazodone or Belsomra. Increased Ambien 10 mg Side effect panel discussed.. Feb, Bereavement due to . Actively life event (ICD-10 - listened. Support Z63.4) given Feb, Mixed hyperlipidemia . Diet controlled. (ICD-10 - [...] you have questions, talk to your doctor. Feb, Primary Discussed osteoarthritis of differential right hip (ICD-10 - diagnosis with M16.11) patient. Education given. Recent CT scan showed arthritis per patient. Referral to orthopedic for further evaluation and management. Feb, Other obesity due to Discussed excess calories [...] discussing and planning diet and exercise plan. Feb, Encounter for Actively listened. dietary counseling Support [...] At least 15 minutes were spent counseling. Feb, Other -- Medication reviewed and updated. -- [...] Orally Once a day PRN SEVERE ANXIETY Treatment Notes Assessment Notes Clinical Notes Depression [...] (such as a psychiatrist, psychologist, nurse or social security specialist) may be necessary to treat depression. Both [...] At least 15 minutes were spent counseling. Next Appt Details 4 Weeks TV Reason: Insurance Providers Payer Name Payer Payer Insured Patient Coverage Coverage End Address Phone Name Relationship to Start Date Dennis e Insured [employer] [phone] [place] [address] [facility] [phone] [facility] [phone]
--- OUTSIDE RECORDS SUMMARY | 2020-06-06 02:09 | XMS REPORT ---
:1975 Author Organization [facility] Address [address], [address] [place] [address] Care Team Providers Name Role Phone Cifuentes Unavailable [phone] PROBLEMS Type Condition ICD9-CM [id number] Onset Condition W/U Status Risk SNOM ED Notes Code Code Dates Status Code Problem Insomnia, G47.00 Active confirmed 582900661 unspecified type Problem Hypothyroidis E03.9 Active confirmed 920297 08 m, unspecified type Problem Depression F41.8 Active confirmed 066416396 with anxiety Problem Generalized F41.1 Active confirmed 04238568 anxiety disorder Problem Panic F41.0 Active confirmed 802413264 disorder [episodic paroxysmal anxiety] Problem Mixed E78.2 Active confirmed 642879960 hyperlipidemi a Problem Primary M16.11 Active confirmed 1702792534 osteoarthriti 67243 s of right hip Problem Other obesity E66.09 Active confirmed 390983 001 due to excess calories Problem Body mass Z68.33 Active confirmed 223424377 index [BMI] 33.0-33.9, adult ALLERGIES No Known Allergies ENCOUNTERS from 1975 to 2020-05-28 Encounter Location Date Provider Diagnosis [facility] [place] [address] May, Amandeep Cifuentes Gastroent eritis K52.9 ; [address] [place], [place] [address] [place] [address] and Nausea and vomiting, intractability of vomiting not sp ecified, unspecified vom iting type R11.2 IMMUNIZATIONS Vaccine Route Administration Date Status Fluzone [...] No Information VITAL SIGNS Height 67 in May, Weight 209 lbs May, Temperature 97.8 degrees Fahrenheit May, BMI 32.73 kg/m2 May, Blood pressure systolic 125 mm Hg May, Blood pressure diastolic 75 mm Hg May, MEDICATIONS Medication SIG (Take, Route, Notes Start Date End Date Status Frequency, Duration) Clonazepam 0.5 MG 1 tablet on the tongue Active and allow to dissolve at bedtime Orally Once a day PRN SEVERE ANXIETY Escitalopram Oxalate 20 MG 1 tablet Orally Once a Active day for 30 day(s) Phentermine HCl 37.5 MG 1 capsule Orally Once Active a day for 30 days Acetaminophen-Codeine 300-30 [...] EMPTY STOMACH FOR 30 DAYS for 30 Levothyroxine Sodium 150 MCG 1 tablet in the Active morning on an empty stomach Orally Once a day for 30 days Cyclobenzaprine HCl 5 MG 1 tablet at bedtime as 25 Nov, 20 20 Active needed Orally Once a day PRN SPASM Dicyclomine HCl 20 MG 1 tablet Orally TID Active PRN PROCEDURES No Information RESULTS No Results REASON FOR VISIT vomitting. diarrhea X 3 weeks, not improving MEDICAL (GENERAL) HISTORY Type Description Date Medical [...] Notes Treatment Notes Treatm ent Clinical Notes May, Gastroenteritis Discussed (ICD-10 - K52.9) differential diagnosis with patient. Education given. Patient declined any testing or imaging at this time. Able to tolerate p.o. Worsening of symptoms once diet was advanced. . Brat diet discussed. Monitor symptoms closely. Referral to GI. May, Watery diarrhea . Referral to GI (ICD-10 - R19.7) for further evaluation management May, Nausea and vomiting, Referral to GI for intractability of further evaluation vomiting not management. specified, Maintain adequate unspecified vomiting hydration type (ICD-10 - R11.2) May, Other -- Medication reviewed and updated. -- [...] Medication Name Sig Start Date Stop Date Dicyclomine HCl 20 MG 1 tablet Orally TID PRN Treatment Notes Assessment Notes Clinical Notes Gastroenteritis Discussed differential diagnosis with patient. Education given. Patient declined any testing or imaging at this time. Able to tolerate p.o. Worsening of symptoms once diet was advanced. . Brat diet discussed. Monitor symptoms closely. Referral to GI. Watery diarrhea . Referral to GI for further evaluation management Nausea and vomiting, intractability Referral to GI for furth er of vomiting not specified, evaluation management. Maintain unspecified vomiting type adequate hydration Next Appt Details prn Reason: Provider Name:Amandeep Cifuentes, 2020-06-06 08:30:00 AM, [address], [address], [place], [address], Provider Name:Amandeep Cifuentes, 2020-06-13 02:20:00 PM, [address], [address], [place], [address], Insurance Providers Payer Name Payer Payer Insured Patient Coverage Coverage End Address Phone Name Relationship to Start Date Dennis e Insured [facility] [phone] [place] self [address] [facility] [id number] [facility] [phone]
--- OUTSIDE RECORDS SUMMARY | 2020-06-06 02:09 | XMS REPORT ---
:1975 Author Organization [facility] Address [address], [address] [place] [address] Care Team Providers Name Role Phone Cifuentes Unavailable [phone] PROBLEMS Type Condition ICD9-CM [id number] Onset Condition SNOMED Code Notes Code Code Dates Status Problem Insomnia, G47.00 Active 092989441 unspecified type Problem Hypothyroidism, E03.9 Active 35346040 unspecified type Problem Depression with F41.8 Active 052638825 anxiety Problem Generalized F41.1 Active 25109835 anxiety disorder Problem Panic disorder F41.0 Active 783417041 [episodic paroxysmal anxiety] Problem Mixed E78.2 Active 417945973 hyperlipidemia Problem Primary M16.11 Active 253797437455958 osteoarthritis of right hip Problem Other obesity due E66.09 Active 178155394 to excess calories Problem Body mass index Z68.33 Active 963692796 [BMI] 33.0-33.9, adult ALLERGIES No Known Allergies ENCOUNTERS from 1975 to 2020-05-14 Encounter Location Date Provider Diagnosis [facility] [address] [place] Apr, Amandeep Cifuentes Gastroent eritis K52.9 ; Drive [address] [place], [facility] [place] [address] infection, uns pecified type J06.9 ; [place] rites[place] diarrhea R19.7 and Nausea and vomi ting, intractability of vomiting not sp ecified, unspecified [...] VITAL SIGNS Height 67 in Apr, Weight 211 lbs Apr, Temperature 98 degrees Fahrenheit Apr, BMI 33.04 kg/m2 Apr, Blood pressure systolic 122 mm Hg Apr, Blood pressure diastolic 70 mm Hg Apr, MEDICATIONS Medication SIG (Take, Route, Notes Start Date End Date Status Frequency, Duration) Euthyrox 150 MCG TAKE 1 TABLET BY MOUTH Active ONCE DAILY IN THE MORNING ON AN EMPTY STOMACH FOR 30 DAYS for 30 Dicyclomine HCl 20 MG 1 tablet Orally TID Apr, Active PRN Levothyroxine Sodium 150 MCG 1 tablet in the Active morning on an empty stomach Orally Once a day for 30 days Zolpidem Tartrate 10 MG 1 tablet at bedtime as Active needed Orally Once a day PRN Insomnia for 30 days Acetaminophen-Codeine 300-30 1 tablet as needed Jul, 20 Active MG Orally every 12 hrs PRN Pain Phentermine HCl 37.5 MG 1 capsule Orally Once Active a day for 30 days Cyclobenzaprine HCl 5 MG 1 tablet at bedtime as 25 Feb, 20 Active needed Orally Once a day PRN SPASM Clonazepam 0.5 MG 1 tablet on the tongue Active and allow to dissolve at bedtime Orally Once a day PRN SEVERE ANXIETY Euthyrox 175 MCG TAKE 1 TABLET BY MOUTH Active ONCE DAILY IN THE MORNING ON AN EMPTY STOMACH FOR 30 DAYS for 30 Escitalopram Oxalate 20 MG 1 tablet Orally Once a Active day for 30 day(s) PROCEDURES No Information RESULTS No Results REASON FOR VISIT Weak and cannot eat MEDICAL (GENERAL) HISTORY Type Description Date Medical [...] Treatment Notes Treatm ent Clinical Notes Apr, Gastroenteritis Discussed (ICD-10 - K52.9) differential diagnosis with patient. Education given. Patient declined any testing or imaging at this time. Overall improving gradually. Able to tolerate p.o. Denies any nausea or vomiting at this time. Diarrhea improving. Advance diet as tolerated. Brat diet discussed. Monitor symptoms closely. Apr, Upper respiratory Discussed tract infection, supportive measures unspecified type and home remedies (ICD-10 - J06.9) for symptomatic relief. Increase hydration. Advised on signs/symptoms to monitor. OK to use OTC Tylenol and/or NSAIDs for pain and fever, temporarily. It is important to rest and take your medication as recommended by the doctor. You should clean your hands frequently. You should remain indoors and cover your mouth when coughing. If necessary you may have to wear a mask to keep from infecting others. You should also change your toothbrush within 24 hours of starting any antibiotics. Salt water gargles three times a day is recommended for pharyngeal irritation and congestion. Nasal saline sprays three times a day to the nostrils may help with the nasal congestion. You may also take Mucinex OTC for chest congestion. If the symptoms persists or worsen after 24-48 hours especially if taking medication, then you are to call back for reevaluation or go to the ER. Apr, Watery diarrhea (ICD-10 - R19.7) Apr, Nausea and vomiting, intractability of vomiting not specified, unspecified vomiting type (ICD-10 - R11.2) Apr, Other -- Medication reviewed and updated. [...] 20 MG 1 tablet Orally TID PRN Apr, Treatment Notes Assessment Notes Clinical Notes Gastroenteritis Discussed differential diagnosis with patient. Education given. Patient declined any testing or imaging at this time. Overall improving gradually. Able to tolerate p.o. Denies any nausea or vomiting at this time. Diarrhea improving. Advance diet as tolerated. Brat diet discussed. Monitor symptoms closely. Upper respiratory tract infection, Discussed supportive iveth ures and unspecified type home remedies for symptomatic relief. Increase hydration. Advised on signs/symptoms to monitor. OK to use OTC Tylenol and/or NSAIDs for pain and fever, temporarily. It is important to rest and take your medication as recommended by the doctor. You should clean your hands frequently. You should remain indoors and cover your mouth when coughing. If necessary you may have to wear a mask to keep from infecting others. You should also change your toothbrush within 24 hours of starting any antibiotics. Salt water gargles three times a day is recommended for pharyngeal irritation and congestion. Nasal saline sprays three times a day to the nostrils may help with the nasal congestion. You may also take Mucinex OTC for chest congestion. If the symptoms persists or worsen after 24-48 hours especially if taking medication, then you are to call back for reevaluation or go to the ER. Next Appt Details prn Reason: Provider Name:Amandeep Cifuentes, 2020-06-06 08:30:00 AM, [address], [place], [address], Provider Name:Amandeep Cifuentes, 2020-06-13 02:20:00 PM, [address], [address], [place], [address], Insurance Providers Payer Name Payer Payer Insured Patient Coverage Coverage End Address Phone Name Relationship to Start Date Dennis e Insured [facility] [phone] [place] self [address] [facility] [id number] [facility] [address]
[2020-06-06] MEDS ORDERED: NA CHLORIDE 0.9% 1,000 ML ONE (03:05)
[2020-06-06 03:28] LABS: Absolute Lymphocytes (CBC) 1.2 K/uL (0.7-4.9); Basophils % 0.2 % (0-1.3); Hematocrit 40.4 % (36.0-45.0); Lymphocytes % 13.7 % (15.3-44.8); MPV 9.6 fL (7.6-11.3); RBC Red Blood Cell Count 4.48 M/uL (3.86-4.86)
[2020-06-06 03:36] LABS: Albumin 3.7 g/dL (3.4-5.0); Bilirubin Total 0.4 mg/dL (0.2-1.0); Potassium 3.5 mmol/L (3.5-5.1)
--- NOTE | 2020-06-06 03:41 | EDPHYS ---
Physician Documentation [facility] Name: Margie Paul Age: 44 yrs Sex: Female : 1975 Arrival Date: 06/06/2020 Time: 02:15 Bed 6 Private MD: [facility] ED Physician Campbell Rene HPI: 06/06 03:39 This 44 yrs old Female presents to ER via Ambulatory with complaints of ma2 Nausea/Vomiting/Diarrhea. 03:39 Onset: The symptoms/episode began/occurred gradually, 4 week(s) ago. Associated signs ma2 and symptoms: Pertinent negatives: belching, flatulence, GI bleeding, hematuria. Severity of symptoms: At their worst the symptoms were mild in the emergency department the symptoms are unchanged. The patient has experienced similar episodes in the past. Historical: - Allergies: 02:29 No Known Allergies; jb4 - Home Meds: 02:29 Synthroid Oral [Active]; Lexapro Oral [Active]; Lyrica oral oral [Active]; jb4 - PMHx: 02:29 Hypothyroidism; Anxiety; insomnia; jb4 - PSHx: 02:29 Cholecystectomy; Tubal ligation; jb4 - Immunization history:: Adult Immunizations up to date. - Social history:: Smoking status: Reported history of juuling and/or vaping. Patient/guardian denies using alcohol, street drugs, Patient/guardian denies using The patient lives with family. - Family history:: not pertinent. ROS: 03:39 Constitutional: Negative for fever, chills, and weight loss. ma2 03:39 All other systems are negative. Exam: 03:39 Constitutional: This is a well developed, well nourished patient who is awake, alert, ma2 and in no acute distress. Chest/axilla: Normal chest wall appearance and motion. Nontender with no deformity. No lesions are appreciated. Cardiovascular: Regular rate and rhythm with a normal S1 and S2. No gallops, murmurs, or rubs. Normal PMI, no JVD. No pulse deficits. Respiratory: Lungs have equal breath sounds bilaterally, clear to auscultation and percussion. No rales, rhonchi or wheezes noted. No increased work of breathing, no retractions or nasal flaring. Abdomen/GI: Soft, non-tender, with normal bowel sounds. No distension or tympany. No guarding or rebound. No evidence of tenderness throughout. Neuro: Awake and alert, GCS 15, oriented to person, place, time, and situation. Cranial nerves II-XII grossly intact. Motor strength 5/5 in all extremities. Sensory grossly intact. Cerebellar exam normal. Normal gait. Vital Signs: 02:26 BP 97 / 67; Pulse 99; Resp 16; Temp 97.1; Pulse Ox 96% ; Weight 92.99 kg (R); Height 5 jb4 ft. 7 in. (170.18 cm) (R); Pain 8/10; 02:26 Body Mass Index 32.11 (92.99 kg, 170.18 cm) jb4 MDM: 02:18 Patient medically screened. [facility] 03:39 Differential diagnosis: Nonspecific abd pain, gastritis, viral gastroenteritis, ma2 gastroenteritis. Data reviewed: vital signs, nurses notes. Counseling: I had a detailed discussion with the patient and/or guardian regarding: the historical points, exam findings, and any diagnostic results supporting the discharge/admit diagnosis, the presence of at least one elevated blood pressure reading (>120/80) during this emergency department visit, the need for outpatient follow up. Response to treatment: the patient's symptoms have markedly improved after treatment. 06/06 02:36 Order name: CBC with Diff; Complete Time: 03:39 [facility] 06/06 02:36 Order name: Lipase; Complete Time: 03:39 [facility] 06/06 02:37 Order name: Comprehensive Metabolic Panel; Complete Time: 03:39 EDMS 06/06 02:45 Order name: Stool Culture [facility] 06/06 04:10 Order name: SARS-COV-2 RT PCR EDMS Administered Medications: 02:58 Drug: NS 0.9% 1000 ml Route: IV; Rate: 1 bolus; Site: right forearm; ea 04:00 Follow up: Response: No adverse reaction; IV Status: Completed infusion; IV Intake: ea 1000ml 04:00 Drug: Zofran (Ondansetron) 4 mg Route: IVP; Site: right forearm; ea 04:20 Follow up: Response: No adverse reaction ea Disposition: 06/06/20 03:40 Discharged to Home. Impression: Diarrhea, unspecified. - Condition is Stable. - Discharge Instructions: Food Choices to Help Relieve Diarrhea, Adult, Diarrhea, Adult. - Prescriptions for Zofran 4 mg Oral Tablet - take 1 tablet by ORAL route every 12 hours As needed; 20 tablet. - Medication Reconciliation Form, Thank You Letter, Antibiotic Education, Prescription Opioid Use form. - Family Work Release (06/06/20 04:26). em - Follow up: Private Physician; When: Tomorrow; Reason: If symptoms return. Signatures: Dispatcher [employer] [facility] Davis Dumont RN RN jb4 Gloria Rock RN RN ea Alzahri, Mohammad, MD MD ma2 Ivan Gimenez RN em Corrections: (The following items were deleted from the chart) 03:13 02:36 COMPREHENSIVE METABOLIC PANEL+[id number].LAB.BRZ ordered. [facility] 04:21 03:40 06/06/2020 03:40 Discharged to Home. Impression: Diarrhea, unspecified. Condition ea is Stable. Prescriptions for Zofran 4 mg Oral Tablet - take 1 tablet by ORAL route every 12 hours As needed; 20 tablet. and Forms are Medication Reconciliation Form, Thank You Letter, Antibiotic Education, Prescription Opioid Use. Follow up: Private Physician; When: Tomorrow; Reason: If symptoms return. ma2
--- NOTE | 2020-06-06 03:41 | ER ---
Nurse's Notes [facility] Name: Margie Paul Age: 44 yrs Sex: Female : 1975 Arrival Date: 06/06/2020 Time: 02:15 Bed 6 Private MD: Amandeep Cifuentes Diagnosis: Diarrhea, unspecified Presentation: 06/06 02:26 Chief complaint: Patient states: I have had nausea, vomiting, and diarrhea for 1 month. jb4 I thought it was getting better,and tonight it got worse again. Coronavirus screen: Client denies travel out of the [place] in the last 14 days. At this time, the client does not indicate any symptoms associated with coronavirus-19. Ebola Screen: Patient negative for fever greater than or equal to 101.5 degrees Fahrenheit, and additional compatible Ebola Virus Disease symptoms. Initial Sepsis Screen: Does the patient meet any 2 criteria? HR > 90 bpm. Yes Does the patient have a suspected source of infection? Yes: Acute abdominal pain. Risk Assessment: Do you want to hurt yourself or someone else? Patient reports no desire to harm self or others. Onset of symptoms was June 06, 2020. Transition of care: patient was not received from another setting of care. 02:26 Method Of Arrival: Ambulatory jb4 02:26 Acuity: JEY 3 jb4 Historical: - Allergies: 02:29 No Known Allergies; jb4 - Home Meds: 02:29 Synthroid Oral [Active]; Lexapro Oral [Active]; Lyrica oral oral [Active]; jb4 - PMHx: 02:29 Hypothyroidism; Anxiety; insomnia; jb4 - PSHx: 02:29 Cholecystectomy; Tubal ligation; jb4 - Immunization history:: Adult Immunizations up to date. - Social history:: Smoking status: Reported history of juuling and/or vaping. Patient/guardian denies using alcohol, street drugs, Patient/guardian denies using The patient lives with family. - Family history:: not pertinent. Screenin:32 Abuse screen: Denies threats or abuse. Nutritional screening: No deficits noted. ea Tuberculosis screening: No symptoms or risk factors identified. Fall Risk None identified. Assessment: 02:54 General: Appears in no apparent distress. Behavior is appropriate for age. Pain: Denies ea pain. Neuro: Level of Consciousness is awake, alert, obeys commands, Oriented to person, place, time. Respiratory: Airway is patent Respiratory effort is even, unlabored, Respiratory pattern is regular, symmetrical. GI: Abdomen is non-distended. Derm: Skin is pink, warm \T\ dry. 03:50 Reassessment: Patient and/or family updated on plan of care and expected duration. Pain ea level reassessed. Patient is alert, oriented x 3, equal unlabored respirations, skin warm/dry/pink. 04:20 Reassessment: Patient and/or family updated on plan of care and expected duration. Pain ea level reassessed. Patient is alert, oriented x 3, equal unlabored respirations, skin warm/dry/pink. Discharge instruction given to patient verbalized the understanding of instruction. Pt left ED ambulatory tolerating well. Vital Signs: 02:26 BP 97 / 67; Pulse 99; Resp 16; Temp 97.1; Pulse Ox 96% ; Weight 92.99 kg (R); Height 5 jb4 ft. 7 in. (170.18 cm) (R); Pain 8/10; 02:26 Body Mass Index 32.11 (92.99 kg, 170.18 cm) jb4 ED Course: 02:15 Patient arrived in ED. am4 02:16 Amandeep Cifuentes DO is Private Physician. am4 02:18 Campbell Rene MD is Attending Physician. ma2 02:28 Triage completed. jb4 02:29 Arm band placed on right wrist. EKG completed in triage. Results shown to MD. EKG jb4 completed in triage. Results shown to MD. 02:32 Patient has correct armband on for positive identification. Bed in low position. Call ea light in reach. Side rails up X2. 02:53 Gloria Rock, KATY is Primary Nurse. ea 02:56 Inserted saline lock: 20 gauge in right forearm, using aseptic technique. Blood ea collected. 04:20 No provider procedures requiring assistance completed. IV discontinued, intact, ea bleeding controlled, No redness/swelling at site. Pressure dressing applied. Administered Medications: 02:58 Drug: NS 0.9% 1000 ml Route: IV; Rate: 1 bolus; Site: right forearm; ea 04:00 Follow up: Response: No adverse reaction; IV Status: Completed infusion; IV Intake: ea 1000ml 04:00 Drug: Zofran (Ondansetron) 4 mg Route: IVP; Site: right forearm; ea 04:20 Follow up: Response: No adverse reaction ea Intake: 04:00 IV: 1000ml; Total: 1000ml. ea Outcome: 03:40 Discharge ordered by . larry 04:20 Discharged to home ambulatory, with family. ea 04:20 Condition: stable 04:20 Discharge instructions given to patient, Instructed on discharge instructions, follow up and referral plans. medication usage, Demonstrated understanding of instructions, follow-up care, medications, Prescriptions given X 1. 04:21 Patient left the ED. ea Signatures: Davis Dumont RN RN jb4 Gloria Rock RN RN ea Alzahri, Mohammad, MD MD ma2 Yudith Maher
[2020-06-06] MEDS ORDERED: ONDANSETRON 4 MG/2 ML VIAL ONE (04:11)
[2020-06-06 04:31] VITALS: BP 97/67; TEMP 97.1; O2SAT 96
== END 2020-06-06 04:21 | disposition home or self-care (01) ==
LOC: ER 02:05
DX: R19.7 Diarrhea, unspecified (principal); E03.9 Hypothyroidism, unspecified; F41.9 Anxiety disorder, unspecified; Z20.822 Contact with and (suspected) exposure to COVID-19
CPT/HCPCS: 36415; 80053; 83690; 85025; 87045; 87046; 96361; 96374; 99284; J2405; J7030; U0003